=== PATIENT | female | born 1990 | race Caucasian/White ===

== ENCOUNTER → 2021-10-06 08:33 | Outpatient (CLI) | payer OTHER, SELFPAY ==
--- NOTE | 2021-10-06 | DI.MRI.S_ITS ---
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 After the administration of contrast, axial and coronal 3D VIBE or T1 spin echo with fat saturation through the brain. COMPARISON: None. FINDINGS: Image quality: Excellent. CSF Spaces: Basal cisterns are patent. No extra-axial fluid collections. Ventricles are normal in size and shape. Brain: No midline shift. No intracranial bleeds or masses. No abnormal intracranial enhancement. The brainstem appears normal. Diffusion-weighted images demonstrate no acute ischemic insults. No chronic ischemic insults. Normal intravascular flow voids are present. Skull and face: Calvarial marrow is normal in signal. Orbits appear normal. Sinuses: Sinuses and mastoids appear clear. IMPRESSION: Unremarkable intracranial examination, without a cause of headaches identified. No masses or abnormal enhancement can be seen. Dictated by: Sean Holland M.D. on 10/06/2021 at 8:16 Approved by: Sean Holland M.D. on 10/06/2021 at 8:17
== END ==
PROVIDERS: PCP Physician Assistant; Referring Provider Physician Assistant; Visit Provider Physician Assistant
DX: G43.519 Persistent migraine aura without cerebral infarction, intractable, without status migrainosus (principal)
CPT/HCPCS: 70553

== ENCOUNTER → 2022-01-23 15:31 | Outpatient (CLI) | payer OTHER, SELFPAY | PROVIDERS: PCP Physician Assistant; Visit Provider Student in an Organized Health Care Education/Training Program | DX: K13.79 Other lesions of oral mucosa (principal) | CPT/HCPCS: 87070; 87075; 87205; 87255 ==

== ENCOUNTER → 2022-10-13 12:43 | Outpatient (CLI) | payer OTHER, SELFPAY | PROVIDERS: PCP Physician Assistant; Visit Provider Nurse Practitioner Family | DX: J02.9 Acute pharyngitis, unspecified (principal) | CPT/HCPCS: 87070 ==